=== PATIENT | female | born 1960 | race Caucasian/White ===

== ENCOUNTER 2016-11-22 12:10 | Inpatient (IN) | payer OTHER, BC ==
[~2016-11-22] VITALS: Ht 149.9 cm; Wt 56.0 kg
--- NOTE | ~2016-11-22 | OR ---
[facility] 56 [facility] [address] ROOM: [address] [place], [place] [address] LOCATION: [facility] ADMIT DATE: 11/22/2016 OR/Procedure Report DISCHARGE DATE: FAMILY PHYSICIAN: Griffin Dobson MD ATTENDING PHYSICIAN: MARQUIS PADGETT SURGEON: Iraj Oates MD TIN WORKER: Thee Rodriguez PA-C. DATE OF PROCEDURE: 11/22/2016 PREOPERATIVE DIAGNOSIS: Left displaced femoral neck fracture. POSTOPERATIVE DIAGNOSIS: Left displaced femoral neck fracture. PROCEDURE: Left hip hemiarthroplasty. ANESTHESIA: Spinal anesthesia and femoral nerve block with sedation. FLUIDS: See anesthesia report. ESTIMATED BLOOD LOSS: 200 mL. SPECIMEN: None. COMPLICATIONS: None. DISPOSITION: Stable in PACU. COUNTS: All counts correct. IMPLANTS: [place] Accolade II left hip hemiarthroplasty, size 2 femoral neck, standard neck size 26 mm outer diameter head plus 0 offset, and 42 mm outer diameter bipolar hemiarthroplasty component. INDICATIONS: Ms. Snider is a pleasant 56-year-old female, who sustained a left hip fracture after a fall. The risks, benefits, and alternatives pursuing a left hip hemiarthroplasty procedure were discussed with the patient in detail. She elected to proceed with surgery as above. I marked the left lower extremity indicating the correct surgical site. OPERATIVE REPORT IN DETAIL: The patient was taken from the holding area to the operating room. A time-out was performed. The spinal anesthetic was administered. A peripheral nerve block has been previously obtained. The patient received clindamycin antibiotic secondary to allergies to penicillin. She received Tranexamic acid preoperatively. The patient was positioned down in the right lateral decubitus position with the left hip exposed using PATIENT'S NAME: TYLOR [facility] AGE: 56 Y [address] ROOM: [address] [address] LOCATION: [facility] ADMIT DATE: 11/22/2016 OR/Procedure Report DISCHARGE DATE: FAMILY PHYSICIAN: Griffin Dobson MD ATTENDING PHYSICIAN: MARQUIS PADGETT [facility] positioners. The left lower extremity was then prepped and draped in a sterile fashion. I turned my attention the left hip. A time-out was performed. I began making a posterior incision to access the left hip. The incision was carried through skin, subcutaneous tissue. I identified the fascia and incised it. I used a Bovie electrocautery device to remove the short external rotators and posterior capsule from the posterior aspect of the greater trochanter. I identified the fracture site. Using my jig, I used Bovie electrocautery device to mimic the direction of my femoral neck cut using the oscillating saw. Using the oscillating saw, I made my femoral neck cut. I used an osteotome to remove the excess bone. I then used a corkscrew to remove the femoral head. I used a rongeur and removed any debris in and around the fracture site. I then copiously irrigated the wound with a normal sterile saline solution. I used a femoral canal finer to open up the femoral canal. I then broached sequentially up to the correct size for the femur. I then trialed and subsequently dislocated the hip. Copiously irrigated them with sterile saline solution, placed the final component in the femoral in the form of a femoral implant, followed by an inner diameter head and ab outer diameter bipolar head. The hip was then reduced. The hip was taken through range of motion. She achieved full extension to 130 degrees of hip flexion with approximately 60 degrees of internal rotation prior to dislocation. The leg lengths were assessed intraoperatively of the superior pole of the patella, and the posterior aspects of the calcanei and they appeared even. Using a #2 Ethibond suture, the short external rotators and posterior capsule were reattached to the posterior aspect of the greater trochanter through bony tunnels. The wound was then copiously irrigated again with normal sterile saline solution. The fascia was closed with #2 STRATAFIX barbed suture construct. The deeper subcutaneous tissue was closed with 0 STRATAFIX barbed suture. The superficial subcutaneous tissue was approximated with 2-0 Vicryl suture and Prineo (Dermabond and mesh construct) was used to approximate the skin. Once the Prineo was dry, a sterile Mepilex dressing was placed. The patient was then transferred from the operating room table onto the stretcher. An abduction pillow was placed between the legs. Leg lengths were assessed postoperatively and were of equal length. The patient was then taken to the recovery room in stable condition. There were no intraoperative complications noted. Of note, my PA, Thee Rodriguez PA-C, played an integral role in the intraoperative care of this patient. This included preoperative positioning, intraoperative expert retraction, reduction assistance, and closing and dressing functions. PATIENT'S NAME: LLOYD SNIDER [facility] AGE: 56 Y [address] ROOM: [address] [address] LOCATION: [facility] ADMIT DATE: 11/22/2016 OR/Procedure Report DISCHARGE DATE: FAMILY PHYSICIAN: Griffin Dobson MD ATTENDING PHYSICIAN: MARQUIS PADGETT IMPRESSION: The patient is status post left hip hemiarthroplasty. PLAN: The patient will be weightbearing as tolerated with hip flexion precautions on the left lower extremity. Physical Therapy and Occupational Therapy will be consulted for early ambulation and prevention of deconditioning. Postoperative antibiotics will be administered per routine. The hospitalist will manage the patient's concomitant medical comorbidities. A postoperative x-ray of the left hip will be obtained in the PACU. I will continue to monitor the patient closely in the postoperative period. MD MARTITA NUNES/modl /[id number] d: 11/23/16 0033 t: 11/24/16 1202, OPERATIVE SUMMARY
--- NOTE | ~2016-11-22 | CON ---
PATIENT'S NAME: LLOYD SNIDER [facility] AGE: 56 Y [address] ROOM: [id number] [place], [place] [address] LOCATION: G3 ADMIT DATE: 11/22/2016 Consultation DISCHARGE DATE: FAMILY PHYSICIAN: Neo Schulz MD ATTENDING PHYSICIAN: MARQUIS PADGETT REFERRING PHYSICIAN: CONNIE HANSEN MD CHIEF COMPLAINT: Left hip and groin pain. HISTORY OF PRESENT ILLNESS: Ms. 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 The patient reports that today she was going about her usual daily routine when she subsequently tripped and fell over the cord of the vacuum mold cleaner. At that time, she used her left upper extremity to brace her fall. At that time, she reported hip and groin pain. Despite noticing this, she stood up, and continued working. She noted that approximately an hour later, she inadvertently pivoted and felt a pop. She fell down to the floor. At that time, she reported excruciating hip and groin pain. At that time, she was unable to bear weight through the left lower extremity. She is brought to the emergency room at [facility] where she was seen and evaluated. I was contacted for, have the patient transferred to [facility] in [place], [place] for definitive orthopedic care. I accepted the patient. The patient reports excruciating left hip and groin pain. Its alleviating factors include resting and keeping a pillow under the leg. Aggravating factors include any manipulation or motion that aggravates the left hip. The patient reports that she is otherwise in good health. She denies any previous surgery or trauma to the left lower extremity. Currently, the patient denies any constitutional symptoms such as fever, chills, or night sweats. She also denies any dizziness, chest pain, short of breath, blurred vision, nausea, vomiting, or diarrhea. PAST MEDICAL HISTORY: None. PAST SURGICAL HISTORY: Includes a right rotator cuff repair in [place] many years ago. ALLERGIES: NO KNOWN DRUG ALLERGIES. MEDICATIONS: See medical reconciliation. FAMILY HISTORY: She reports osteoporosis on her mother and father's side of the family. PATIENT'S NAME: LLOYD SNIDER [facility] AGE: 56 Y [address] ROOM: [address] [address] LOCATION: [facility] ADMIT DATE: 11/22/2016 Consultation DISCHARGE DATE: FAMILY PHYSICIAN: Neo Schulz MD ATTENDING PHYSICIAN: MARQUIS PADGETT SOCIAL HISTORY: The patient denies any alcohol, tobacco, or illicit drug use. PHYSICAL EXAMINATION: VITAL SIGNS: The patient is afebrile with vital signs are otherwise stable. GENERAL: She is awake, alert, and oriented x3. She is in no acute distress currently. She is actively conversing with me at the bedside. HEENT: Normocephalic and atraumatic. Extraocular movements are intact. PERRLA. Moist mucous membranes. The oropharyngeal airway is clear. NECK: Supple. Trachea is in the midline. CHEST: Normal symmetric respirations are observed bilaterally. CARDIOVASCULAR: Regular rate and rhythm. ABDOMEN: Soft, nontender, and nondistended. PELVIS: Stable. MUSCULOSKELETAL: Right Lower Extremity: Focal examination of the patient's right lower extremity reveals that she is grossly neurologically intact distally. Compartments of the thigh, leg, and foot are soft. There is palpable dorsalis pedal and posterior tibial pulses. There is no pain with passive range of motion of her hip, knee, ankle, and foot. Strength is preserved at the extremity distally at 5/5. Sensation is intact to light touch at L2 through S1. Left Lower Extremity: Focal examination of the patient's left lower extremity reveals that is shortened and externally rotated relative to the contralateral extremity. Compartments of the thigh, leg, and foot are soft. There is good capillary refill in the toes. There is palpable dorsalis pedal and posterior tibial pulses. There is a positive log roll test on this side. Any manipulation of the left hip elicits pain in the hip and groin region. The patient is neurologically intact L2 through S1 distally. IMAGING STUDIES: Plain radiographs of the left hip reveal evidence of a displaced femoral neck fracture. LABORATORY VALUES: Reveal evidence of an elevated white blood cell count. IMPRESSION: Left displaced femoral neck fracture. PLAN: I had a long discussion with the patient in the presence of her family regarding her left hip. I explained that she likely had a nondisplaced fracture on her initial fall, but subsequently became a displaced fracture PATIENT'S NAME: LLOYD SNIDER [facility] AGE: 56 Y [address] ROOM: [address] [address] LOCATION: [facility] ADMIT DATE: 11/22/2016 Consultation DISCHARGE DATE: FAMILY PHYSICIAN: Neo Schulz MD ATTENDING PHYSICIAN: MARQUIS PADGETT after she got up and continued working. At this time, I would like her to be on bed rest. I have asked the Hospitalist Service to see the patient, evaluate her, and clear her for surgery. She is currently n.p.o. I have recommended a left hip hemiarthroplasty procedure to address the fracture type. I have discussed the risks, benefits, and alternatives pursuing a surgical intervention with the patient in detail. I discussed the risks of anesthesia, infection, bleeding, and/or injury to neurovascular structures about the left hip. She expressed understanding of this. She has elected to proceed with surgery. We will plan for surgery this afternoon, provided the patient has been medically cleared. She is currently in the emergency room, and will be transferred to the operating room provided she is cleared. I will continue to monitor the patient closely in the perioperative period. MD MARTITA NUNES/cesia /[id number] d: 11/22/16 2101 t: 11/23/16 0952, CONSULTATION REPORT
--- NOTE | ~2016-11-22 | ER ---
PATIENT'S NAME: KLEBER SNIDERVIA [facility] AGE: 56 Y [address] ROOM: [place] [address] LOCATION: G3 ADMIT DATE: 11/22/2016 ER/Outpatient Report DISCHARGE DATE: FAMILY PHYSICIAN: Noe Schulz MD ATTENDING PHYSICIAN: MARQUIS PADGETT Time of Arrival: 1215 hours. Time of Exam: 1215 hours. CHIEF COMPLAINT: Left hip fracture. HISTORY OF PRESENT ILLNESS: The patient was transferred here by EMS from [facility]. The patient states that about 8:10 today she was vacuuming at work, she works at the [facility] [facility] [employer] and tripped over the cord, fell, landed on her left hip. States it was tender when she got up, but she did get up and walked. States that she worked for about another hour and then the pain became unbearable and felt like her left foot was turning out, so she presented to their ER. In [place] [facility], they did start an IV, gave her some morphine for the pain, and x-rayed her hip. She does have a hip fracture. They talked with Dr. Oates and made arrangements for her to be transported to [facility] for his continuation of care. En route to the hospital, she did receive fentanyl 100 mcg total IV and has fluids of normal saline running. She states as long as she does not move, the pain is bearable. Reports that she last ate about 5 o'clock this morning and has not had anything to drink since the fall. ALLERGIES: PENICILLIN, DILAUDID, TRAMADOL, AND HYDROCODONE. CURRENT MEDICATIONS: Prilosec. PAST MEDICAL HISTORY: GERD. PAST SURGERIES: Right shoulder rotator cuff. SOCIAL HISTORY: The patient lives in [place] with her . Denies use of tobacco, drugs, or alcohol. REVIEW OF SYSTEMS: All negative other than those mentioned in the HPI. PATIENT'S NAME: TYLOR LLOYD [facility] AGE: 56 Y [address] ROOM: [place] [address] LOCATION: [facility] ADMIT DATE: 11/22/2016 ER/Outpatient Report DISCHARGE DATE: FAMILY PHYSICIAN: Neo Schulz MD ATTENDING PHYSICIAN: MARQUIS PADGETT PHYSICAL EXAMINATION: VITAL SIGNS: She weighed 56 kg. Blood pressure is 158/61; pulse of 106; respirations 20; temperature of 98.9, tympanic; O2 saturation was 94% on room air. GENERAL: She is awake, alert, and oriented x4. SKIN: [place], warm, and dry. LUNGS: Respirations are even and nonlabored. Lung sounds are clear throughout. HEART: Regular rate and rhythm. ABDOMEN: Soft and nondistended. Bowel sounds are present. EXTREMITIES: She has strong pedal pulses. No peripheral edema noted. Good sensation to her toes. EMERGENCY DEPARTMENT COURSE: Dr. Oates was contacted. He is in surgery and so the hospitalist was contacted. They will come and evaluate the patient for admission. LABORATORY DATA AND X-RAYS: Lab work was drawn. CBC shows a white count of 13.5, hemoglobin 15.1 with hematocrit of 43.3. Chem panel; sodium is 142, potassium is 3.6 with a chloride of 108, BUN is 10, creatinine 0.5. EKG was completed, shows a sinus tachy. Chest x-ray was completed. No acute infiltrates seen. The patient was evaluated by the hospitalist, Alexandra BARAJAS. Dr. Oates did come and see the patient. The patient is to go to the OR. IMPRESSION: Left hip fracture. PLAN: The patient to go to the OR from here and then be admitted to the hospital. She verbalized understanding. MIN KAUR APRN FOR MD CARLYN AYOUB/cesia /[id number] d: 11/22/162112 t: 12/08/1602, OUTPATIENT REPORT
--- NOTE | ~2016-11-22 | HP ---
PATIENT'S NAME: LLOYD SNIDER [facility] AGE: 56 Y [address] ROOM: [place] [address] LOCATION: [facility] ADMIT DATE: 11/22/2016 History & Physical DISCHARGE DATE: FAMILY PHYSICIAN: Neo Schulz MD ATTENDING PHYSICIAN: MARQUIS MCKEON DATE OF SERVICE: PRIMARY CARE PHYSICIAN: Dr. Dobson in [place]. CONSULTING PHYSICIANS: Iraj Oates MD, orthopedics. HISTORY OF PRESENT ILLNESS: Mrs. 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 While working, she got caught up on the cord of the vacuum hospital cleaner and fell onto the concrete floor directly onto her left hip. At that point, she felt a pop. She was, however, able to get up and was able to bear weight on her left leg. She was able to walk on it for approximately an hour when the pain became unbearable and she noticed a rotation of her left foot. At that point, she reported to the [place] [facility] where she was evaluated and found to have a left hip fracture. The patient is being forwarded here to [facility] for admission and orthopedic consultation for management of her hip fracture. PAST MEDICAL HISTORY: The patient states a history of GERD. The patient denies pertinent history including any type of cardiac history or diabetes. PAST SURGICAL HISTORY: The patient has undergone a right rotator cuff repair. MEDICATIONS: 1. Prilosec 40 mg daily. 2. Aleve p.r.n. 3. Flonase p.r.n. 4. Antihistamines p.r.n. for seasonal allergies. ALLERGIES: NO KNOWN DRUG ALLERGIES. THE PATIENT DOES SUFFER SEASONAL ALLERGIES, PARTICULARLY "HAY FEVER." HABITS: PATIENT'S NAME: KLEBER SNIDERVIA [facility] AGE: 56 Y [address] ROOM: [place] [address] LOCATION: [facility] ADMIT DATE: 11/22/2016 History & Physical DISCHARGE DATE: FAMILY PHYSICIAN: Neo Schulz MD ATTENDING PHYSICIAN: MARQUIS MCKEON The patient is a nonsmoker, nor alcohol or illicit drug user. FAMILY HISTORY: Reviewed and noncontributory. She does note that her dad at 67 secondary to cirrhosis of the liver and her mom is alive and in a reasonable good health at age 85. EXERCISE HISTORY: The patient does make a point that she walks 30 minutes twice daily on the treadmill and has for quite some time. REVIEW OF SYSTEMS: Ten-point review of systems is negative other than what is cited in the history of present illness. PHYSICAL EXAMINATION: VITAL SIGNS: Weight 56 kg. Temperature 98.9, pulse 106, O2 saturation 94% on room air, and blood pressure 158/61. GENERAL: The patient is a well-developed, 56-year-old female who appears her stated age. She appears to be a reasonably comfortable at the time of this exam. HEENT: Unremarkable. NECK: Soft and supple. No thyromegaly noted. CHEST: Clear to auscultation throughout. No rhonchi or wheezes. CARDIOVASCULAR: Regular rhythm and rate. The patient is tachy. ABDOMEN: Soft and nontender. Diminished bowel sounds. EXTREMITIES: Without peripheral edema and warm. The patient does have discomfort when attempting to mobilize the left leg. No calf tenderness. NEURO: The patient is alert, oriented, follows commands, is able to move all extremities; however, does of course experience discomfort when the left leg is attempted to be removed. LABORATORY DATA: 1. Chest x-ray is obtained and shows lungs are clear. Heart and mediastinum are normal. No bony abnormalities, normal chest. 2. EKG shows sinus tach. 3. CMP: Sodium 142, potassium slightly low at 3.6, chloride 108, bicarb 25, BUN 10, creatinine 0.5. LFTs within normal limits. GFR greater than 60. 4. [place] [address], hemoglobin 15.1, hematocrit 43.3, and platelets 190K, 88 segs, 5 lymphs. 5. Prealbumin is 27. IMPRESSION: 1. Status post mechanical fall resulting in the left hip fracture which is now fully displaced. Anticipate the patient will undergo a left hemiarthroplasty with Dr. Oates later on this afternoon. The patient is PATIENT'S NAME: LLOYD SNIDER [facility] AGE: 56 Y [address] ROOM: [address] [address] LOCATION: [facility] ADMIT DATE: 11/22/2016 History & Physical DISCHARGE DATE: FAMILY PHYSICIAN: Neo Schulz MD ATTENDING PHYSICIAN: MARQUIS MCKEON cleared for the OR. 2. Gastroesophageal reflux disease, well controlled with Prilosec. We will continue. 3. Suspicion for osteoporosis given this fracture in a 56-year-old female. We will check a vitamin D level and follow up on this. The patient voiced understanding of the plan and management. Dr. Oates was able to come down and visit with the patient while in the ER to review the plan for the OR. Dr. Mckeon was also available and reviewed the patient and records for medical clearance to proceed. Thank you for allowing us to help care for this patient. SANDEEP LANG PA-C FOR MD MARCIAL NUNESM/cesia /[id number]: [id number] T: [id number] HISTORY & PHYSICAL
--- NOTE | ~2016-11-22 | DS ---
PATIENT'S NAME: LLOYD SNIDER [facility] AGE: 56 Y [address] ROOM: [place] [address] LOCATION: [facility] ADMIT DATE: 11/22/2016 Discharge Summary DISCHARGE DATE: 11/25/2016 FAMILY PHYSICIAN: Griffin Dobson MD ATTENDING PHYSICIAN: Kaiser Mckeon PRINCIPAL DISCHARGE DIAGNOSIS: Left femur fracture. SECONDARY DIAGNOSES: 1. Tachycardia. 2. Anemia of acute blood loss. 3. Nausea. 4. Gastroesophageal reflux disease. 5. Allergic rhinitis. 6. Possible osteoporosis, vitamin D level is pending at the time of this dictation. CONSULTATIONS: Dr. Iraj Oates of Orthopedics. PROCEDURES: Left hip hemiarthroplasty that was done on the day of admission 11/22/2016. BRIEF HISTORY: Ms. 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 She got caught up in the bag including "fell on the concrete floor" directly onto the left hip when she felt a pop. However, she was able to get up and continue bearing weight on her leg. After about an hour, the pain became so severe, she went to the ER. There, she was found to have a left hip fracture. She was transferred here for after acceptance by Dr. Oates for orthopedic evaluation and management of her hip fracture. She underwent left hip hemiarthroplasty on the and this was done without complication. She is noted to be nauseated with vomiting the day after surgery. She was treated with antiemetics. We tried to adjust her pain medications as well to suit this. She has been participating with physical therapy as anticipated. Yesterday, she had some increase in heart rate, she was treated with IV fluids and improved somewhat. When I examined her today, she had persistent tachycardia, which did not respond immediately to fluids. Laboratory evaluation ensued with a CBC, which showed her hemoglobin has dropped to 8.2, she was around 15 on admission; in addition, she had a normal white blood cell count. She did have a mildly low potassium and was repleted with 40 mEq of [facility] 56 Y [address] ROOM: [place] [address] LOCATION: N ADMIT DATE: 11/22/2016 Discharge Summary DISCHARGE DATE: 11/25/2016 FAMILY PHYSICIAN: Griffin Dobson MD ATTENDING PHYSICIAN: Kaiser Mckeon. TSH was found to be normal, D-dimer was only slightly elevated at 0.74, and a CPK is elevated at 528, which could be accounted for by significant bruising that she has #1 in her left upper arm after her fall, which was present on admission, and bruising on the left lateral thigh. However, it was concerning that her heart rate continued to climb and it was in the 130s so to confirm that she did not have a PE, CT/PE protocol was obtained, and is negative. The patient was advised of the results of these tests. She is advised to rest, activity as per Dr. Oates, increase iron in her diet, iron b.i.d., and obtain CBC prior to seeing her primary care doctor Neo Schulz early next week. She does have family history of osteoporosis and because of this fracture with minimal trauma I have checked her vitamin D; however, it is still pending at the time of my discharge and she may need further evaluation for osteoporosis. The patient expressed understanding and agreement with the current discharge plan. INSTRUCTIONS AT DISCHARGE: 1. Diet: As tolerated with the above-mentioned increase in iron and I also instructed her on a high-potassium foods are citrus fruits, cantaloupe, and bananas. 2. Activity: Weightbearing as tolerated with hip dislocation precautions. 3. Follow up: Dr. Oates in 2 weeks, the PCP in 4-5 days. MEDICATIONS AT DISCHARGE: 1. Tylenol Extra Strength every 6 hours p.r.n. pain. 2. Flonase daily. 3. Prilosec 20 mg daily. 4. Xarelto 10 mg p.o. daily. 5. She is to hold her naproxen while she is on Xarelto. 6. Ferrous sulfate 325 mg p.o. b.i.d. with meals. 7. MiraLAX and Colace for use while on narcotics. 8. Phenergan 25 mg 1 p.o. every 6 hours p.r.n. nausea. CONDITION AT DISCHARGE: Good. Her heart rate is down to 115. MASHA STACY MD LM/cesia PATIENT'S NAME: LLOYD SNIDER [facility] AGE: 56 Y [address] ROOM: [place] [address] LOCATION: [facility] ADMIT DATE: 11/22/2016 Discharge Summary DISCHARGE DATE: 11/25/2016 FAMILY PHYSICIAN: Griffin Dobson MD ATTENDING PHYSICIAN: Kaiser Mckeon /[id number] d: 11/26/16 0227 t: 11/28/16 1425, DISCHARGE SUMMARY
[2016-11-22 13:02] LABS: BASOPHIL % 0.3 %; EOSINOPHIL % 0.1 %; HEMATOCRIT 43.3 % (33.0-46.0); HEMOGLOBIN 15.1 g/dL (10.0-15.0); IMMATURE GRANULOCYTE # 0.1 K/uL (0.0-0.3); IMMATURE GRANULOCYTE % 0.5 %; LYMPHOCYTE # 0.7 K/uL (0.8-4.0); LYMPHOCYTE % 5.1 %; MCH 29.9 pg (27.0-34.0); MCHC 34.9 gm/dL (32.0-36.5); MCV 85.7 fl (83.0-98.0); MONOCYTE # 0.7 K/uL (0.0-1.0); MONOCYTE % 5.2 %; MPV 9.1 fl (9.4-12.4); NEUTROPHIL % 88.8 %; NRBC % 0 /100WBC (0-0.00); PLATELET COUNT 190 K/uL (150-450); RBC 5.05 M/uL (3.50-5.50); RDW-CV 12.5 % (11.9-14.6); WBC 13.5 K/uL (4.0-11.0)
[2016-11-22 13:10] LABS: PROTIME 10.3 SECONDS (9.6-11.1); PTT 25 SECONDS (25-32)
[2016-11-22 13:20] LABS: ALK PHOS 94 IU/L (33-138); ALT 63 IU/L (12-78); ANION GAP 12.6 (10.0-19.0); AST 39 IU/L (10-40); BLOOD UREA NITROGEN 10 mg/dL (6-24); CALCIUM 8.2 mg/dL (8.5-10.5); CHLORIDE 108 mMol/L (96-110); CO2 25 mMol/L (22-32); CREATININE 0.5 mg/dL (0.5-1.1); ESTIMATED GFR (MDRD EQUATION) > 60; POTASSIUM 3.6 mMol/L (3.7-5.1); SODIUM 142 mMol/L (135-145); TOTAL BILIRUBIN 0.5 mg/dL (0.0-1.5); TOTAL PROTEIN 6.8 g/dL (6.0-8.4)
[2016-11-22] MEDS ORDERED: PRILOSEC20 MG PO (14:37)
[2016-11-22] MEDS ORDERED: ALEVE220 M1 PO (14:40)
[2016-11-22] MEDS ORDERED: FLONASE 50 MCG/16 GM NOSE (14:47)
--- NOTE | 2016-11-23 05:14 | NUR ---
POD#1 S/P FALL AT HOME WITH LEFT HIP FX, SURGICAL REPAIR AND ARRIVED TO THE FLOOR AFTER SHIFT CHANGE. CMS WNL NOW AFTER SPINAL WORE OFF, ABDUCTOR FOAM IN PLACE FOR HIP PRECAUTIONS, UP TO BSC WITH TTWB TO LLE AND MAY BE WBAT AFTER 0800. PATIENT HAD SOME N/V AT THE FIRST PART OF THE SHIFT AND WAS GIVEN PHENERGAN IV IN PACU AND STATED SHE FELT MUCH BETTER AFTER THE EMESIS AND DOING MUCH BETTER THIS AM AND IVFS WERE DC'D AND RIGHT WRIST PIV WAS SALINE LOCKED @0330. VS WNL, O2 SATS >90% ALL NIGHT ON RA, PERCOCET LD@0230 WITH GOOD RESULTS, BUT PATIENT DOES HAVE ALOT OF NARCOTICS THAT SHE CANT TAKE BECAUSE OF ALLERGIES AND PERCOCET IS CAUSING HER SOME GI UPSET AND NAUSEA. PLAN TO DC HOME ON DISCHARGE WITH FAMILY.
[2016-11-23 05:37] LABS: HEMOGLOBIN 11.1 g/dL (10.0-15.0)
[2016-11-23 05:41] LABS: HEMATOCRIT 32.1 % (33.0-46.0)
--- NOTE | 2016-11-23 10:25 | NUR ---
1025 Introduced self/role to patient, SW Desk Attendant Fabiola also present. She lives in [place] with her Lele. 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 The only needs she thought of was maybe would be a walker and toilet riser. Her insurance is [employer] so explained those items will probably not be covered by her insurance but can put scripts on her chart. 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 No other discharge needs. Added my name to her marker board, will continue to follow.
--- NOTE | 2016-11-23 14:08 | NUR ---
Significant Event: AO but forgetful at times. VSS. History of fall at home. Planning on going to [place] maybe tomorrow. Up with 1 assist with walker. Patient had couple of loose stools this morning. Starting coughing. May have aspirated on some water. Doctor ordered chest x-ray. Fluids stopped. Follow up:
--- NOTE | 2016-11-23 14:19 | NUR ---
Significant Event: AOx3. VSS. CSM WNL. Up with 1 assist with walker. Dressing C/D/I. Ice to L) hip. Patient has been nauseated most of the day. Zofran given x1. Pain medicine changed to nucynta. Has had few sips and bites. Abducter pillow on in chair. Follow up:
--- NOTE | 2016-11-24 04:13 | NUR ---
Patient alert and oriented x3, very pleasant and cooperative, transfers well one assist with walker and gaitbelt, csm within normal limits, did have one dose of IV morphine, gabriela has worked well the rest of the night last given a 100mg at 0030, has rested well plans to go home today
--- NOTE | 2016-11-24 08:45 | NUR ---
P: Patient c/o feeling lightheaded and slightly nauseated when ambulating to BR with walker and one assist. Patient reports feeling better after sitting down on toilet. KARL Rodriguez notified
--- NOTE | 2016-11-24 16:52 | NUR ---
Significant Event: Nucynta 50mg x3 last at 1609. Routine Tylenol ES. Mepilex to lt hip. CSM WNL. Ecchymosis to lt upper arm. NS 500ml bolus this am. C/O slight dizziness this am. Abdutor pillow when in bed and in chair. Plan home tomorrow Follow up:
[2016-11-25] MEDS ORDERED: XARELTO10 MG PO (01:57)
[2016-11-25] MEDS ORDERED: NUCYNTA50 MG (01:58)
--- NOTE | 2016-11-25 04:00 | NUR ---
Significant Event: A&O X3. HR tachycardic in low 100's, othwerwise VSS. Mepilex dressing to L) hip is CDI. CSM WNL. Rates pain 2-10. Nucynta given for pain. Abductor pillows between legs. Up to bathroom with 1 assist, gait belt and walker. Last BM 11/22. IV dc'd to R) wrist, was leaking. Pt to discharge home today. Follow up:
[2016-11-25] MEDS ORDERED: TYLENOL EXTRA500 MG PO (08:53)
[2016-11-25] MEDS ORDERED: XARELTO10 MG (09:00)
[2016-11-25] MEDS ORDERED: MIRALAX PO527 GM/BOT PO (09:07)
[2016-11-25] MEDS ORDERED: COLACE100 MG PO (09:17)
[2016-11-25] MEDS ORDERED: ULTRAM50 MG PO (09:21)
[2016-11-25] MEDS ORDERED: MOBIC7.5 MG PO (09:23)
[2016-11-25 11:19] LABS: BASOPHIL % 0.1 %; EOSINOPHIL % 0.3 %; HEMOGLOBIN 8.2 g/dL (10.0-15.0); IMMATURE GRANULOCYTE % 0.5 %; LYMPHOCYTE # 0.7 K/uL (0.8-4.0); LYMPHOCYTE % 9.1 %; MCHC 34.6 gm/dL (32.0-36.5); MCV 86.8 fl (83.0-98.0); MONOCYTE # 0.6 K/uL (0.0-1.0); MONOCYTE % 8.4 %; MPV 8.8 fl (9.4-12.4); NEUTROPHIL # (ANC) 6.2 K/uL (1.8-7.8); NEUTROPHIL % 81.6 %; NRBC % 0 /100WBC (0-0.00); PLATELET COUNT 164 K/uL (150-450); RDW-CV 12.6 % (11.9-14.6); WBC 7.6 K/uL (4.0-11.0)
[2016-11-25 11:20] LABS: HEMATOCRIT 23.7 % (33.0-46.0); RBC 2.73 M/uL (3.50-5.50)
[2016-11-25 11:32] LABS: ALBUMIN 2.6 gm/dL (3.5-5.0); ANION GAP 13.4 (10.0-19.0); BLOOD UREA NITROGEN 7 mg/dL (6-24); CALCIUM 7.9 mg/dL (8.5-10.5); CHLORIDE 103 mMol/L (96-110); CO2 26 mMol/L (22-32); CREATININE 0.4 mg/dL (0.5-1.1); ESTIMATED GFR (MDRD EQUATION) > 60; MAGNESIUM 1.9 mg/dL (1.3-2.6); PHOSPHORUS 2.7 mg/dL (2.5-4.9); POTASSIUM 3.4 mMol/L (3.7-5.1); SODIUM 139 mMol/L (135-145)
--- NOTE | 2016-11-25 14:48 | NUR ---
Spoke to patients workman's comp geriatric case manager, Thee #[phone]. Patient might not be leaving today but doesn't at this point have any discharge needs that I am aware of. 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 He talked to her today and will touchbase with her again on Monday once home.
[2016-11-25 15:25] LABS: CPK 528 IU/L (21-215)
[2016-11-25 16:40] LABS: BILIRUBIN URINE NEGATIVE (NEGATIVE); BLOOD URINE NEGATIVE /UL (NEGATIVE); GLUCOSE URINE NEGATIVE (NEGATIVE); KETONE URINE 5 mg/dL (NEGATIVE); LEUKOCYTES URINE NEGATIVE /UL (NEGATIVE); NITRITE URINE NEGATIVE (NEGATIVE); PROTEIN URINE NEGATIVE (NEGATIVE); SPEC GRAVITY URINE 1.005 (1.003-1.035); UROBILINOGEN URINE NORMAL (NORMAL)
[2016-11-25 16:42] LABS: COLOR URINE YELLOW (YELLOW); TURBIDITY URINE CLEAR (CLEAR)
[2016-11-25] MEDS ORDERED: FERGON325 M1 PO (16:52)
[2016-11-25] MEDS ORDERED: PHENERGAN25 M1 PO (16:55)
--- NOTE | 2016-11-25 17:19 | NUR ---
pt given discharge instructions and voices understanding. medications and appointments reviewed with pt. dressing discussed. escorted the pt to the front door by this nurse. family at pt's side.
== END 2016-11-25 17:20 | disposition disaster alternative care site (69) | DRG 470 ==
LOC: GACC 12:10 → G3N 14:17
PROVIDERS: Internal Medicine; Nurse Practitioner Family; Orthopaedic Surgery Adult Reconstructive Orthopaedic Surgery; ADMIT Internal Medicine
PROC: 0SRS01Z Replacement of Left Hip Joint, Femoral Surface with Metal Synthetic Substitute, Open Approach (ICD-10-PCS; principal; 2016-11-22)
DX: S72.002A Fracture of unspecified part of neck of left femur, initial encounter for closed fracture (principal); D62 Acute posthemorrhagic anemia; K21.9 Gastro-esophageal reflux disease without esophagitis; M81.0 Age-related osteoporosis without current pathological fracture; J30.9 Allergic rhinitis, unspecified; W18.30XA Fall on same level, unspecified, initial encounter
CPT/HCPCS: C1776; J0690; J2001; J2250; J2270; J2405; J2550; J2795; J3010; J7030; J7120; Q9967